=== PATIENT | female | born 1965 | race Caucasian/White ===

== ENCOUNTER → 2022-09-23 | Outpatient (CLI) | payer BC ==
--- NOTE | 2022-09-24 12:45 | CA ---
Transthoracic Echo Report Name: Ghazala Palencia Age: 56 Gender: F : 1965 Exam Date: 09/23/2022 13:52 Exam Location: [facility] Ht (in): 61 Wt (lb): 160 Ordering Physician: Nisa Busch MD Attending/Referring Phys: [employer] Consultant Kiesha Carty RDCS Procedure CPT: Indications: R06.00 Cardiac Hx: Technical Quality: Good Contrast 1: Total Dose (mL): Contrast 2: Total Dose (mL): MEASUREMENTS (Male / Female) Normal Values 2D ECHO LV Diastolic Diameter PLAX 4.6 cm 4.2 - 5.9 / 3.9 - 5.3 cm LV Systolic Diameter PLAX 2.9 cm IVS Diastolic Thickness 0.9 cm 0.6 - 1.0 / 0.6 - 0.9 cm LVPW Diastolic Thickness 0.9 cm 0.6 - 1.0 / 0.6 - 0.9 cm LV Relative Wall Thickness 0.4 RV Internal Dim ED PLAX 3.0 cm LA Systolic Diameter LX 3.4 cm 3.0 - 4.0 / 2.7 - 3.8 cm LV Diastolic Volume MOD BP 74.8 cm??? 67 - 155 / 56 - 104 cm??? LV Systolic Volume MOD BP 38.6 cm??? 22 - 58 / 19 - 49 cm??? LV Ejection Fraction MOD BP 48.3 % >= 55 % LV Cardiac Index MOD BP 1369.7 cm???/min???m??? LV Diastolic Volume MOD 4C 86.2 cm??? LV Systolic Volume MOD 4C 47.8 cm??? LV Ejection Fraction MOD 4C 44.6 % LV Cardiac Index MOD 4C 1456.1 cm???/min???m??? LV Diastolic Length 4C 6.7 cm LV Systolic Length 4C 5.6 cm LV Diastolic Volume MOD 2C 64.5 cm??? LV Systolic Volume MOD 2C 29.0 cm??? LV Ejection Fraction MOD 2C 55.0 % LV Cardiac Index MOD 2C 1342.9 cm???/min???m??? LV Diastolic Length 2C 6.6 cm LV Systolic Length 2C 6.1 cm LA Volume 47.8 cm??? 18 - 58 / 22 - 52 cm??? M-MODE Aortic Root Diameter MM 3.3 cm MV E Point Septal Separation 0.4 cm AV Cusp Separation MM 2.2 cm DOPPLER AV Peak Velocity 162.3 cm/s AV Peak Gradient 10.5 mmHg MV Area PHT 3.3 cm??? Mitral E Point Velocity 90.8 cm/s Mitral A Point Velocity 111.0 cm/s Mitral E to A Ratio 0.8 MV Deceleration Time 227.7 ms MV E' Velocity 6.0 cm/s Mitral E to MV E' Ratio 15.1 TR Peak Velocity 229.2 cm/s TR Peak Gradient 21.0 mmHg Right Ventricular Systolic Press 25.7 mmHg FINDINGS Left Ventricle Left ventricular ejection fraction is estimated at 50-55 %. Left ventricular cavity size normal. Left ventricular wall thickness normal. Right Ventricle Normal right ventricular size and function. Right ventricular systolic pressure within normal limits. Right Atrium Normal right atrial size. Left Atrium Normal left atrial size. Mitral Valve Mitral valve thickened. Mild mitral annular calcification. Trace to mild mitral regurgitation. Aortic Valve Trileaflet aortic valve. No aortic valve stenosis or regurgitation. Tricuspid Valve Structurally normal tricuspid valve. Mild tricuspid regurgitation. Pulmonic Valve Structurally normal pulmonic valve. No pulmonic regurgitation. Pericardium Normal pericardium. No pericardial effusion. Aorta Normal size aortic root and proximal ascending aorta. CONCLUSIONS Normal LV systolic function Previewed by: Dr. Jam Rodriguez MD (Electronically Signed) Final Date: 24 September 2022 12:44
== END | disposition home or self-care (01) ==
LOC: RADECHMAIN 13:45
PROVIDERS: ATTEND Internal Medicine Critical Care Medicine
DX: R06.00 Dyspnea, unspecified (principal)
CPT/HCPCS: 93306